=== PATIENT | female | born 1965 | race Caucasian/White ===

== ENCOUNTER 2022-12-29 07:59 | Outpatient (CLI) | payer OTHER, SELFPAY ==
--- NOTE | ~2022-12-29 | XR_ITS ---
Left Knee Technique: AP, lateral, and oblique views were obtained. Clinical History: Pain COMPARISON: 04/26/2018 Findings: There is a linear radiolucency through the lateral patella seen only on the sunrise view, w hich was not clearly present on prior exam. There is moderate tricompartmental degenerative spurring. Soft tissues are unremarkable. No joint effusion is seen. Impression: Possible nondisplaced fracture of the lateral patella, seen only on sunrise view. Fracture orientatio n is somewhat atypical, or could be related to osteophyte or bony productive change at the lateral pa tella which is otherwise similar to prior exam. Moderate tricompartmental degenerative change. Reviewed, dictated and finalized at location . Impression: Possible nondisplaced fracture of the lateral patella, seen only on sunrise vie w. Fracture orientation is somewhat atypical, or could be related to osteophyte or bony productive change at the lateral patella which is otherwise similar to prior exam. Moderate tricompartmental degenerative change.
== END 2022-12-29 08:00 | disposition home or self-care (01) ==
PROVIDERS: PCP Family Medicine; Visit Provider Family Medicine
DX: M17.12 Unilateral primary osteoarthritis, left knee (principal)
CPT/HCPCS: 73564

== ENCOUNTER 2023-03-19 01:24 | Day surgery (SDC) | payer OTHER, SELFPAY ==
[2023-03-12 12:25] VITALS: BMI 44.6
--- NOTE | 2023-03-18 09:20 | PM.HPGS ---
History of Present Illness History of Present Illness Consent: Risks, benefits, and alternatives have been discussed and questions answered. Patient agrees to proceed with procedure. Chief complaint: family hx colon ca, neoplasm screening Narrative: Valorie Goldstein is a 57 year old female Referred for colon cancer screening. Her father had colon cancer . Also her mother's twin sister had colon cancer Review of Systems Review of Systems: All systems reviewed & are unremarkable except as noted in HPI and below PMFSH Past Medical History Medical History Adult BMI 45.0-49.9 kg/sq m COVID-19 Essential hypertension Hyperlipidemia Hypothyroidism, unspecified Irregular heart beat Left knee pain Morbid (severe) obesity due to excess calories Uncontrolled diabetes mellitus Family History Family History Father Carcinoma of colon Hypertension Heart disease Diabetes mellitus Mother Dementia Sibling Hyperlipidemia Malignant neoplasm of prostate Other Cerebrovascular accident Social History Social History Smoking status: Never smoker Second hand tobacco smoke exposure: Yes Alcohol intake: never Substance use: never Substance use type: does not use Living arrangements: with family Occupation/Education: occupation Additional occupation/education comments: administration & [employer] Gender identity (if verbalized by the patient): Female Spiritual care concerns: No Meds Home Medications and Allergies Home Medications Medication Instructions Recorded Confirmed Type empagliflozin 25 mg tablet 25 mg PO DAILY #90 tabs 09/13/22 03/12/23 Rx (Jardiance) rosuvastatin 20 mg tablet See Rx Instructions .Route 11/15/22 03/12/23 Rx .COMPLEX #90 tabs hydrochlorothiazide 25 mg tablet See Rx Instructions .Route 01/18/23 03/12/23 Rx .COMPLEX #90 tabs levothyroxine 200 mcg tablet 200 mcg PO DAILY #90 tabs 01/18/23 03/12/23 Rx metformin 500 mg tablet,extended 1,000 mg PO DAILY #180 tabs 02/01/23 03/12/23 Rx release 24 hr semaglutide 2 mg/dose (8 mg/3 mL) 2 mg (0.75 mL) subcut WEEKLY #3 mL 02/01/23 03/12/23 Rx subcutaneous pen injector (Melissa) blood-glucose sensor (FreeStyle #1 ea 02/09/23 03/12/23 Rx Lavelle 3 Sensor device) aspirin 81 mg tablet,delayed 81 mg PO DAILY 03/12/23 03/12/23 History release Allergies Allergy/AdvReac Type Severity Reaction Status Date / Time No Known Allergies Allergy Unknown Verified 03/19/23 10:32 Exam Const: General: alert Orientation/consciousness: patient oriented x3 Resp: Auscultation: clear to auscultation bilaterally Cardio: Rate: regular rate Rhythm: regular rhythm GI: GI Palp: Yes Soft to palpation and No Tenderness to palpation present (GI) Neuro: General: patient oriented x3 Assessment and Plan Assessment and plan (1) Screening for malignant neoplasm of colon: Code(s): Z12.11 - Encounter for screening for malignant neoplasm of colon Status: Acute Assessment and Plan: Colonoscopy with possible biopsy or polypectomy or cautery or injection of substances.
--- NOTE | 2023-03-19 07:52 | WPDANESEPPF ---
Anes - Initial Pre Proc Eval Procedure: Operation Date: 03/19/23 11:00 Proposed Procedures p Colonoscopy - Kurt Webb MD Date/Time: 03/19/23 07:52 Surgeon: Kurt Webb MD Pre Op Diagnosis: family hx colon ca, neoplasm screening Patient Data Age: 57 Gender: F Height: 1.69 m Weight: 127.4 kg Allergies Allergy/AdvReac Type Severity Reaction Status Date / Time No Known Allergies Allergy Unknown Verified 03/12/23 12:47 Home Medications Medication Instructions Recorded Confirmed Type empagliflozin 25 mg tablet 25 mg PO DAILY #90 tabs 09/13/22 03/12/23 Rx (Jardiance) rosuvastatin 20 mg tablet See Rx Instructions .Route 11/15/22 03/12/23 Rx .COMPLEX #90 tabs hydrochlorothiazide 25 mg tablet See Rx Instructions .Route 01/18/23 03/12/23 Rx .COMPLEX #90 tabs levothyroxine 200 mcg tablet 200 mcg PO DAILY #90 tabs 01/18/23 03/12/23 Rx metformin 500 mg tablet,extended 1,000 mg PO DAILY #180 tabs 02/01/23 03/12/23 Rx release 24 hr semaglutide 2 mg/dose (8 mg/3 mL) 2 mg (0.75 mL) subcut WEEKLY #3 mL 02/01/23 03/12/23 Rx subcutaneous pen injector (Ozempic) blood-glucose sensor (FreeStyle #1 ea 02/09/23 03/12/23 Rx Lavelle 3 Sensor device) aspirin 81 mg tablet,delayed 81 mg PO DAILY 03/12/23 03/12/23 History release Patient hx anesthesia problems: none Family hx anesthesia problems: none Results Review: All pre-operative results and documents have been reviewed as part of the pre-operative evaluation. [facility] Past Medical History Medical History Adult BMI 45.0-49.9 kg/sq m COVID-19 Essential hypertension Hyperlipidemia Hypothyroidism, unspecified Irregular heart beat Left knee pain Morbid (severe) obesity due to excess calories Uncontrolled diabetes mellitus Family History Family History Father Carcinoma of colon Hypertension Heart disease Diabetes mellitus Mother Dementia Sibling Hyperlipidemia Malignant neoplasm of prostate Other Cerebrovascular accident Social History Social History Smoking status: Never smoker Second hand tobacco smoke exposure: Yes Alcohol intake: never Substance use: never Substance use type: does not use Living arrangements: with family Occupation/Education: occupation Additional occupation/education comments: administration Gender identity (if verbalized by the patient): Female Spiritual care concerns: No Anes - Eval Final PreProcedure Day of Procedure 03/19/23 07:52 Patient weight: morbidly obese Heart: regular rate and rhythm Lungs: clear to auscultation and normal air movement Airway: Mallampati scale class II Neurological: alert and oriented Last oral intake: >/= 8 hours ASA classification: III Emergent: no Anesthetic plan: proceed Anesthesia type and monitoring: general GIVS Results Review: All pre-operative results and documents have been reviewed as part of the pre-operative evaluation. Informed Consent: The patient's anesthetic plan and its attendant risks and benefits were discussed with the patient/family/POA. Questions were solicited and answers provided to the satisfaction of the patient/family/POA.
[2023-03-19 10:33] VITALS: BP 150/102; PULSE 95; RESP 20; TEMP 36.1; O2SAT 98
[2023-03-19] MEDS: LACTATED RINGERS 1,000 ML 150 ML IV CONT (10:36)
[2023-03-19] MEDS: SIMETHICONE ORAL SUSPENSION 20 MG/0.3 ML 30 ML BOTTLE 0.6 ML IRRIGATION (11:02)
[2023-03-19 11:10] VITALS: BP 106/65; PULSE 78; RESP 20; O2SAT 98
[2023-03-19 11:20] VITALS: BP 103/70; PULSE 78; RESP 20; O2SAT 97
[2023-03-19 11:30] VITALS: BP 115/87; PULSE 77; RESP 20; O2SAT 97
== END 2023-03-19 11:36 | disposition home or self-care (01) ==
PROVIDERS: PCP Family Medicine; Visit Provider Internal Medicine Gastroenterology
PROC: 0DJD8ZZ Inspection of Lower Intestinal Tract, Via Natural or Artificial Opening Endoscopic (ICD-10-PCS; CPT 45378; principal; 2023-03-19 11:00)
DX: Z12.11 Encounter for screening for malignant neoplasm of colon (principal); K64.8 Other hemorrhoids; Z80.0 Family history of malignant neoplasm of digestive organs; I10 Essential (primary) hypertension; E78.5 Hyperlipidemia, unspecified; E03.9 Hypothyroidism, unspecified; E11.9 Type 2 diabetes mellitus without complications; E66.01 Morbid (severe) obesity due to excess calories; Z68.42 Body mass index [BMI] 45.0-49.9, adult; Z79.84 Long term (current) use of oral hypoglycemic drugs; Z79.899 Other long term (current) drug therapy; Z79.82 Long term (current) use of aspirin
CPT/HCPCS: 45378; J2704; J7120